=== PATIENT | female | born 1975 | race Caucasian/White ===

== ENCOUNTER → 2017-01-15 | Outpatient (CLI) | payer BC ==
--- NOTE | 2017-01-15 19:34 | KCIC ---
Bilateral digital screening mammograms: Reason for examination: Routine screening. No previous examinations available for comparison. The skin and nipples show no abnormalities. No abnormal axillary lymph nodes are seen. The breast parenchyma is extremely dense. (Breast density: Category D.) There appears to be a nodular density in the medial left breast on cc view and inferior breast on oblique view. Further evaluation with ultrasound is recommended. There are no other dominant masses, suspicious calcifications or architectural distortion. Impression: Nodular density in the lower inner quadrant of the left breast. Recommend further evaluation with ultrasound. Your patient's mammogram demonstrates that she has dense breast tissue (breast density category C or D), which could hide abnormalities, and if she has other risk factors for breast cancer that have been identified, she might benefit from supplemental screening tests that may be suggested by you as her ordering physician. Dense breast tissue, in and of itself, is a relatively common condition. Therefore, this information is not provided to cause undue concern, but rather to raise your awareness and to promote discussion with your patient regarding the presence of other risk factors, in addition to dense breast tissue. Your patient's mammography results will be sent to her. BI-RAD Category 0: Incomplete. Ultrasound follow-up is recommended. "Our facility is accredited by the [employer] Mammography [employer]." This patient's information has been entered into a reminder system for the patient to be notified with the results of her examination and a target date for the next mammogram. Electronically signed by: Sujey Du MD (01/15/2017 7:30 PM) [id number]
== END ==
LOC: KCIC MAMMO 14:33
PROVIDERS: ATTEND Obstetrics & Gynecology
DX: Z12.31 Encounter for screening mammogram for malignant neoplasm of breast (principal)
CPT/HCPCS: G0202; 77067

== ENCOUNTER → 2017-01-23 | Outpatient (CLI) | payer BC ==
--- NOTE | 2017-01-23 13:09 | RAD ---
Left breast ultrasound, 01/23/2017: History: Abnormal screening mammogram The screening mammograms demonstrated extremely dense, heterogeneous breasts. There is a small patch of asymmetric tissue in the inferomedial aspect of the left breast. A targeted ultrasound exam of that region was therefore performed. At the 8:30 location in the left breast, approximately 6 cm from the nipple there is a small 2 x 3 x 4 hypoechoic nodule. It is wider than tall. Its margins are smooth. There are low level internal echoes. No blood flow is demonstrated in this nodule. This probably represents a complicated cyst. This is smaller than the mammographic asymmetry. At the 6:00 location in the left breast approximately 3 cm from the nipple, there is a slightly larger 8 x 2 x 7 mm nodule demonstrating similar sonographic characteristics. No suspicious mass is seen in the lower inner quadrant sonographically. IMPRESSION: Probably benign nodules in the lower inner quadrant of the left breast as described above. Mammographic and sonographic follow-up beginning with left mammograms and left breast ultrasound in 6 months is suggested to establish stability. BI-RADS 3-probably benign findings
== END | disposition home or self-care (01) ==
LOC: KCIC US 12:23
PROVIDERS: ATTEND Obstetrics & Gynecology
DX: N63 Unspecified lump in breast (principal)
CPT/HCPCS: 76641

== ENCOUNTER → 2017-08-05 | Outpatient (CLI) | payer BC | END | disposition home or self-care (01) | LOC: KCIC MAMMO 08:57 | DX: R92.8 Other abnormal and inconclusive findings on diagnostic imaging of breast (principal) | CPT/HCPCS: 76641; 77065 ==